=== PATIENT | male | born 1975 | race African-American/Black ===

== ENCOUNTER 2019-02-14 07:18 | Outpatient (CLI) | payer OTHER ==
--- NOTE | 2019-02-14 09:55 | MRI Report ---
Reason: PAIN IN KNEE Procedure Date: 02/14/2019 Accession Number: [id number] / [id number] Procedure: MRI - Knee LT W/O CPT Code: Final Report FULL RESULT: EXAM: LEFT KNEE MRI WITHOUT CONTRAST EXAM DATE: 02/14/2019 09:00 AM. CLINICAL HISTORY: Left knee pain. COMPARISON: None. TECHNIQUE: Multiplanar, multisequence T1-weighted and fluid-sensitive sequences of the knee without contrast. Other: None. FINDINGS: Bones: Borderline patella power is present. No acute fracture or bone lesions. Articular Cartilage: Small, superficial, partial-thickness articular cartilage fissures or defects at the patella. Partial-thickness articular cartilage fissures at the femoral trochlear groove and medial trochlear facet. Medial Meniscus: Possible tiny 1 mm, vertically oriented tear at the posterior inferior aspect of the posterior horn (sagittal image 22 of series 701). Lateral Meniscus: The lateral meniscus is intact. Cruciate Ligaments: The anterior and posterior cruciate ligaments are intact. Collateral Ligaments: The medial collateral and lateral collateral ligamentous structures are intact. Tendons: There are low-grade partial tears at the proximal medial and proximal lateral aspects of the patellar tendon. There is diffuse patellar tendinosis. Small low-grade partial tear at the distal posterior aspect of the patellar tendon. The semimembranosus and popliteus tendons are unremarkable. Musculature: No edema or fatty atrophy. Other: No effusion. No popliteal cyst. No loose bodies. The medial and lateral retinacula are intact. The subcutaneous tissues and fat pads are unremarkable. IMPRESSION: 1. Low-grade partial tears at the proximal and distal aspects of the patellar tendon. Diffuse patellar tendinosis. 2. Borderline patella power. 3. 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 4. Possible, tiny vertically oriented tear at the posterior inferior aspect of the posterior horn medial meniscus. [facility]
--- NOTE | 2019-02-14 10:19 | MRI Report ---
Reason: PAIN IN KNEE Procedure Date: 02/14/2019 Accession Number: [id number] / [id number] Procedure: MRI - Knee RT W/O CPT Code: Final Report FULL RESULT: EXAM: RIGHT KNEE MRI WITHOUT CONTRAST EXAM DATE: 02/14/2019 09:00 AM. CLINICAL HISTORY: Pain in knee. COMPARISON: None. TECHNIQUE: Multiplanar, multisequence T1-weighted and fluid-sensitive sequences of the knee without contrast. Other: None. FINDINGS: Cruciate ligaments: The anterior and posterior cruciate ligaments appear intact. Medial meniscus: Intrasubstance degeneration. No tear identified. Lateral meniscus: Intact. No tear identified. Collateral ligaments: The medial and fibular collateral ligaments appear intact. Bones and articular surfaces: Moderate cartilage thinning, irregularity and fissuring in the central and medial aspect of the trochlea with subchondral edema and tiny subchondral cyst formation. Small medial greater than lateral compartment marginal osteophytes. No significant joint effusion. Extensor mechanism: Focal 8 x 4 x 5 mm fluid signal focus within the substance of the proximal lateral fibers of the patellar tendon with adjacent tendon and infrapatellar fat pad edema. Small chronic ossification at the inferior margin of the deep aspect of the patellar tendon. Quadriceps insertion appears intact. IMPRESSION: 1. Mild to moderate proximal patellar tendinitis with small focus of low-grade intrasubstance tear. Adjacent edema within the infrapatellar fat. 2. Moderate chondromalacia in the patellofemoral compartment. [facility]
== END 2019-02-14 07:19 | disposition home or self-care (01) ==
LOC: DI 07:18
PROVIDERS: ATTEND General Practice
DX: S76.112A Strain of left quadriceps muscle, fascia and tendon, initial encounter (principal); M94.262 Chondromalacia, left knee; M76.51 Patellar tendinitis, right knee; S76.111A Strain of right quadriceps muscle, fascia and tendon, initial encounter; M94.261 Chondromalacia, right knee

== ENCOUNTER 2020-04-12 15:04 | Outpatient (CLI) | payer OTHER | END 2020-04-12 15:05 | disposition home or self-care (01) | LOC: COV 15:04 | PROVIDERS: ATTEND Family Medicine | DX: Z20.822 Contact with and (suspected) exposure to COVID-19 (principal) ==